=== PATIENT | female | born 1970 ===

== ENCOUNTER 2018-04-29 12:11 | Outpatient (CLI) | payer BC | END 2018-04-29 12:12 | disposition home or self-care (01) | LOC: C.MAMMO 12:11 | DX: Z12.31 Encounter for screening mammogram for malignant neoplasm of breast (principal); E04.9 Nontoxic goiter, unspecified ==

== ENCOUNTER 2018-07-09 12:10 | Outpatient (CLI) | payer BC | END 2018-07-09 12:11 | disposition home or self-care (01) | LOC: C.MAMMO 12:11 ==